=== PATIENT | male | born 1980 | race Caucasian/White ===

== ENCOUNTER 2016-04-04 12:10 | Emergency (ER) | payer OTHER ==
[2016-04-04 14:34] VITALS: BP 145/87
--- NOTE | 2016-04-04 14:51 | UC ---
Throat Pain/Nasal Urban HPI - HPI Summary HPI Summary: Patient has had over 1 week of increased sinus pressure headache and cough. - History of Current Complaint Chief Complaint: UCGeneralIllness Stated Complaint: SINUS PRESSURE AND CONGESTION Time Seen by Provider: 04/04/16 14:39 Hx Obtained From: Patient Onset/Duration: Sudden Onset, Lasting Days Severity: Moderate Pain Intensity: 6 Pain Scale Used: 0-10 Numeric Cough: Productive Associated Signs & Symptoms: Positive: Wheezing, Sinus Discomfort, Nasal Discharge - Epiglottits Risk Factors Epiglottis Risk Factors: Negative - Allergies/Home Medications Allergies/Adverse Reactions: Allergies Allergy/AdvReac Type Severity Reaction Status Date / Time No Known Allergies Allergy Verified 08/13/14 16:59 PMH/Surg Hx/FS Hx/Imm Hx Previously Healthy: Yes - Surgical History Surgical History: None - Family History Known Family History: Positive: Hypertension - Social History Alcohol Use: Occasionally Substance Use Type: None Smoking Status (MU): Former Smoker Review of Systems Constitutional: Fatigue Skin: Negative Eyes: Negative ENT: Negative, Sore Throat, Nasal Discharge Respiratory: Negative, Cough Cardiovascular: Negative Gastrointestinal: Negative Genitourinary: Negative Motor: Negative Musculoskeletal: Negative Neurological: Headache Psychological: Negative All Other Systems Reviewed And Are Negative: Yes Physical Exam Triage Information Reviewed: Yes Appearance: Well-Nourished, Ill-Appearing, Pain Distress Vital Signs: Initial Vital Signs Temp 98.6 F 04/04/16 14:29 Pulse 82 04/04/16 14:29 Resp 16 04/04/16 14:29 BP 145/87 04/04/16 14:29 Pulse Ox 97 04/04/16 14:29 Vital Signs Reviewed: Yes Eye Exam: Normal Eyes: Positive: Conjunctiva Clear ENT Exam: Normal ENT: Positive: Pharyngeal erythema, Nasal congestion, Nasal drainage, Other: - bilateral cerumen impaction, maxillary and frontal sinus pressure Dental Exam: Normal Neck exam: Normal Neck: Positive: Supple, Nontender, No Lymphadenopathy Respiratory Exam: Normal Respiratory: Positive: Chest non-tender, No respiratory distress, No accessory muscle use, Wheezing, Inspiration Cardiovascular Exam: Normal Cardiovascular: Positive: RRR, No Murmur, Pulses Normal Abdominal Exam: Normal Abdomen Description: Positive: Nontender, No Organomegaly, Soft Bowel Sounds: Positive: Present Musculoskeletal Exam: Normal Musculoskeletal: Positive: Strength Intact, ROM Intact, No Edema Neurological Exam: Normal Neurological: Positive: Alert, Muscle Tone Normal Psychological Exam: Normal Skin Exam: Normal Throat Pain/Nasal Course/Dx - Course Course Of Treatment: hisotry obtained, exam performed, medications prescribed. - Differential Dx/Diagnosis Differential Diagnosis/HQI/PQRI: Influenza, Laryngitis, Pharyngitis, Sinusitis, Tonsillitis, URI Provider Diagnoses: sinusitis Discharge - Discharge Plan Condition: Stable Disposition: HOME Prescriptions: Amoxicillin/Clavulanate TAB* [Augmentin TAB 875*] 875 mg PO BID #14 tab predniSONE TAB* [Deltasone TAB*] 40 mg PO DAILY #10 tab Patient Education Materials: Sinusitis (ED) Additional Instructions: take the medication as prescribed. increase fluid intake and use ibuprofen or tylenol for pain and fever
== END 2016-04-04 15:09 | disposition home or self-care (01) ==
LOC: UCCORT 12:10
DX: J32.9 Chronic sinusitis, unspecified (principal); Z87.891 Personal history of nicotine dependence
CPT/HCPCS: 99212; G0463

== ENCOUNTER 2016-04-14 07:51 | Emergency (ER) | payer OTHER ==
[2016-04-14 08:04] VITALS: BP 127/95
--- NOTE | 2016-04-14 08:16 | UC ---
Ear Complaint HPI - HPI Summary HPI Summary: Here 10 d ago with URI symptoms and sinus pressure. Dx sinusitis, Rx Augmentin for 10d. Sinuses cleared up for the most part, but now has a productive cough. Coughed this AM and left ear "popped", was painful, and he though there was some blood on his fingertip when he rubbed the ear. No fever. No ST. Was noted to have cerumen impaction 10d ago, given drops for ears - History of Current Complaint Chief Complaint: UCEar Stated Complaint: SINUS COMPLAINT Time Seen by Provider: 04/14/16 07:58 Hx Obtained From: Patient Onset/Duration: Gradual Onset, Lasting Weeks - 2 Severity Initially: Mild Severity Currently: Mild Aggravating Factors: Nothing Alleviating Factors: Nothing Associated Signs/Symptoms: Positive: URI Symptoms - Allergies/Home Medications Allergies/Adverse Reactions: Allergies Allergy/AdvReac Type Severity Reaction Status Date / Time No Known Allergies Allergy Verified 04/14/16 07:59 PMH/Surg Hx/FS Hx/Imm Hx Previously Healthy: Yes - Surgical History Surgical History: None - Family History Known Family History: Positive: Hypertension - Social History Occupation: Employed Full-time Lives: With Family Alcohol Use: Occasionally Substance Use Type: None Smoking Status (MU): Former Smoker Type: Cigarettes Amount Used/How Often: 1 PPD Length of Time of Smoking/Using Tobacco: On and Off for 21 Years Have You Smoked in the Last Year: Yes When Did the Patient Quit Smoking/Using Tobacco: November 2015 - Immunization History Most Recent Influenza Vaccination: Not the 2015/2016 Season Review of Systems Constitutional: Negative Skin: Negative Eyes: Negative ENT: Ear Ache, Nasal Discharge Respiratory: Cough Cardiovascular: Negative Gastrointestinal: Negative Genitourinary: Negative Motor: Negative Neurovascular: Negative Musculoskeletal: Negative Neurological: Negative Psychological: Negative All Other Systems Reviewed And Are Negative: Yes Physical Exam Triage Information Reviewed: Yes Appearance: Well-Appearing, No Pain Distress, Well-Nourished Vital Signs: Initial Vital Signs Temp 98.5 F 04/14/16 07:56 Pulse 80 04/14/16 07:56 Resp 16 04/14/16 07:56 BP 127/95 04/14/16 07:56 Pulse Ox 98 04/14/16 07:56 Vital Signs Reviewed: Yes Eye Exam: Normal ENT: Positive: Hearing grossly normal, Pharynx normal, TMs normal - left TM not reddened, no obvious rupture of TM. Canal normal. Right canal occluded with cerumen. Rinsed out here. Negative: Nasal drainage, Tonsillar swelling, Tonsillar exudate, Trismus, Muffled/hoarse voice Neck exam: Normal Respiratory Exam: Normal Cardiovascular Exam: Normal Musculoskeletal Exam: Normal Neurological Exam: Normal Psychological Exam: Normal Skin Exam: Normal Ear Complaint Course/Dx - Differential Dx/Diagnosis Differential Diagnosis/HQI/PQRI: Otitis Media, Perforated TM, URI Provider Diagnoses: URI Discharge - Discharge Plan Condition: Stable Disposition: HOME Prescriptions: Guaifenesin-Codeine [Cheratussin AC] 1 - 2 teasp PO Q4HR PRN #120 ml MDD 30ml PRN Reason: Cough Neomyc/Polym/HC 1% OTIC SUSP* [Cortisporin Otic Susp 1%*] 4 drop BOTH EARS QID # 1 btl Patient Education Materials: Cerumen Impaction (ED), Upper Respiratory Infection (ED) Referrals: Keely Bravo MD [Primary Care Provider] -
== END 2016-04-14 08:23 | disposition home or self-care (01) ==
LOC: UCCORT 07:51
DX: J06.9 Acute upper respiratory infection, unspecified (principal); Z87.891 Personal history of nicotine dependence
CPT/HCPCS: 99213; G0463

== ENCOUNTER 2016-07-05 16:45 | Emergency (ER) | payer SELFPAY ==
[2016-07-05 17:11] VITALS: BP 149/87
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
[2016-07-05] MEDS ORDERED: Silver Sulfadiazine 1%* 20 GM TOPICAL ONE (18:03)
== END 2016-07-05 18:31 | disposition home or self-care (01) ==
LOC: UCCORT 16:45
DX: T22.212A Burn of second degree of left forearm, initial encounter (principal); T31.0 Burns involving less than 10% of body surface; X12.XXXA Contact with other hot fluids, initial encounter; Y93.G3 Activity, cooking and baking; Y92.511 Restaurant or cafe as the place of occurrence of the external cause; Y99.0 Civilian activity done for income or pay; F17.210 Nicotine dependence, cigarettes, uncomplicated
CPT/HCPCS: 99212; A9270-GY; G0463

== ENCOUNTER 2019-06-25 18:53 | Emergency (ER) | payer OTHER ==
--- NOTE | 2019-06-25 19:37 | UC ---
[facility] HPI HPI Summary: 39 yo man, reviewed history and he consented to Telehealth visit, for which he has been determined to be suitable based on comfortable appearance and ease of speech. He has a 2 day history of cough and fever without shortness of breath or chest pain. His daughter had similar symptoms last week, and she has tested negative for both flu and Covid, and her symptoms have resolved. He has been off work today, but comes in because of concern about persistent symptoms. He has a mild headache, but no photophobia, nausea or vomiting. No sweating or He used acetaminophen once today, around 4 hours ago. Temp to 100.1 was around 10 am. Hx of hypertension. Although he was prescribed amlodipine 3 months ago, he has not been taking it regularly because he does not like the way it makes him feel. [facility] PMH Previously Healthy: Yes - overweight with high BMI Cardiovascular History: Reports: Hx Hypertension Infectious Disease History: No - Family History Known Family History: Positive: Hypertension, Diabetes - Social History Occupation: Employed Full-time Lives: With Family Alcohol Use: Occasionally Substance Use Type: Reports: None Smoking Status (MU): Former Smoker Type: Cigarettes Amount Used/How Often: 15 CIGS Length of Time of Smoking/Using Tobacco: On and Off for 21 Years Have You Smoked in the Last Year: Yes [facility] ROS All Other Systems Reviewed And Are Negative: Yes Positive: Fever Eyes: Negative ENT: Negative Negative: Sore Throat, Ear Ache Positive: Other - has not been doing blood pressure checks. . Negative: Palpitations, Chest Pain Positive: Cough. Negative: Shortness Of Breath Gastrointestinal: Negative Genitourinary: Negative Musculoskeletal: Negative Skin: Negative Positive: Headache Psychological: Normal Telehealth PE Appearance: Positive: Well-Appearing - Speaks comfortably, without evident tachypnea. Normal skin color., Obese Skin: Positive: Skin Color Reflects Adequate Perfusion [facility] Course/Dx Assessment/Plan: Symptoms consistent with viral illness, and testing for both COVID and influenza were done today. Flu A and B negative. He will continue symptomatic treatment at home pending results of COVID testing. Provider Diagnoses: Viral syndrome [facility] Disposition Provider Recommendation for Treatment: Urgent Care Telehealth Visit: Patient Consented Verbally to Telehealth Visit Telehealth Patient Statement: The patient should understand that they are communicating with their provider via a secure communication platform and that all the same privacy and confidentiality rules apply. They will also be responsible for copayments or coinsurances that apply to any Telehealth visit. Patient Identifiers: 2 Patient Identifiers Verified for Telehealth Visit - name and date of Telehealth Visit Start Time: 19:25 Telehealth Visit End Time: 20:00 - end of flu A testing. Telehealth Provider Attestation: The above services were appropriate to provide in a Telehealth setting. - Attestation Statements Document Initiated by Scribe: No Scribe Documentation Reviewed: No
[2019-06-25 20:06] LABS: Influenza A Molecular Negative (Negative); Influenza B Molecular Negative (Negative)
== END 2019-06-25 20:21 | disposition home or self-care (01) ==
LOC: UCCORT 18:53
DX: B34.9 Viral infection, unspecified (principal); Z20.828 Contact with and (suspected) exposure to other viral communicable diseases; I10 Essential (primary) hypertension; Z79.899 Other long term (current) drug therapy; Z87.891 Personal history of nicotine dependence
CPT/HCPCS: 87635; 99211; G0463